=== PATIENT | male | born 1960 | race African-American/Black ===

== ENCOUNTER 2019-07-29 16:51 | Inpatient (IN) | payer MEDICAID ==
[~2019-07-29] VITALS: Ht 172.7 cm; Wt 85.7 kg
[2019-07-29] MEDS ORDERED: insulin (17:17)
[2019-07-29] MEDS ORDERED: VANCOMYCIN 1 G PREMIX 200 ML IV ONE (18:45)
[2019-07-29] MEDS ORDERED: PIPERACILLIN/TAZ 3.375G PREMIX 50 ML IV ONE (18:45)
[2019-07-29 19:02] LABS: BASOPHILS % 1.4 % (0.0-2.0); EOSINOPHILS % 2.1 % (0.0-5.0); HEMATOCRIT. 38.4 % (42.0-52.0); HEMOGLOBIN. 12.9 g/dL (14.0-18.0); LYMPHOCYTES % 32.3 % (20.0-50.0); MEAN CORPUSCULAR HEMOGLOBIN 28.1 pg (28.0-32.0); MEAN CORPUSCULAR VOLUME 83.7 fL (80.0-94.0); MEAN PLATELET VOLUME 8.5 fl (7.4-10.4); MONOCYTES % 5.2 % (2.0-8.0); PLATELET 235 x1000/uL (130-400); RED BLOOD CELL COUNT 4.59 mill/uL (4.7-6.1); RED CELL DISTRIBUTION WIDTH 14.2 % (11.6-14.6)
[2019-07-29 19:05] LABS: CHLORIDE 99 mEq/L (98-107)
[2019-07-29 19:09] LABS: PROTHROMBIN TIME 10.4 sec (9.6-11.0)
[2019-07-29] MEDS ORDERED: SODIUM CHLORIDE 0.9% 1,000 ML IV ONE (19:30)
[2019-07-29] MEDS ORDERED: INSULIN REGULAR (HUMULIN R) 300UNITS/3ML SUBCUT NR (19:30)
[2019-07-30] VITALS (7 sets, daily range): BP systolic 153–164; BP diastolic 87–99
[2019-07-30] MEDS ORDERED: ENAL20TA MT (01:51)
[2019-07-30] MEDS ORDERED: ACET167L14 PO (01:51)
[2019-07-30] MEDS ORDERED: ATOR20TA65 MT (01:51)
[2019-07-30] MEDS ORDERED: VERA180C3 MT (01:51)
[2019-07-30] MEDS ORDERED: ESCI20TA MT (01:51)
[2019-07-30] MEDS ORDERED: DEXTROSE 50% WATER 50ML SYRINGE IV PRN (02:15)
[2019-07-30] MEDS ORDERED: CLONIDINE 0.1MG TABLET PO PRN (02:15)
[2019-07-30] MEDS: PIPERACILLIN/TAZOBACTAM 3.375 G in DEXT 5% WATER 100 ML IV SCH ×3 (05:03→21:02)
[2019-07-30] MEDS: VANCOMYCIN 750 MG in DEXT 5% WATER 250 ML IV SCH ×2 (06:16→17:27)
[2019-07-30] MEDS: VERAPAMIL HCL 40MG TABLET PO SCH ×3 (06:17→21:01)
[2019-07-30] MEDS: BLOOD SUGAR DIAGNOSTIC STRIP TEST SCH ×4 (06:28→21:02)
[2019-07-30] MEDS: INSULIN LISPRO 100 UNITS/ML SUBCUT SCH ×4 (06:45→21:33)
[2019-07-30] MEDS: ENALAPRIL 5MG TABLET PO SCH ×2 (10:46→21:01)
[2019-07-30] MEDS: HYDRALAZINE HCL 25MG TABLET PO SCH ×2 (10:47→21:01)
[2019-07-30] MEDS: CITALOPRAM HYDROBROMIDE 10MG TABLET PO SCH (14:27)
[2019-07-30] MEDS ORDERED: ATORVASTATIN CALCIUM 20MG TABLET PO SCH (21:00)
[2019-07-30] MEDS: INSULIN GLARGINE UD 100 UNITS/ML SYR SUBCUT SCH (21:32)
[2019-07-31] VITALS: BP 159/98
[2019-07-31 04:00] VITALS: BP 144/88
[2019-07-31] MEDS: PIPERACILLIN/TAZOBACTAM 3.375 G in DEXT 5% WATER 100 ML IV SCH ×2 (04:45→13:36)
[2019-07-31] MEDS: VANCOMYCIN 750 MG in DEXT 5% WATER 250 ML IV SCH (06:27)
[2019-07-31] MEDS: VERAPAMIL HCL 40MG TABLET PO SCH ×2 (06:28→13:35)
[2019-07-31] MEDS: BLOOD SUGAR DIAGNOSTIC STRIP TEST SCH ×2 (07:00→11:49)
[2019-07-31] MEDS: INSULIN LISPRO 100 UNITS/ML SUBCUT SCH ×2 (07:00→13:43)
[2019-07-31 07:41] LABS: CHLORIDE 104 mEq/L (98-107)
[2019-07-31 07:50] LABS: VANCOMYCIN TROUGH 7.7 ug/mL (5.0-10.0)
[2019-07-31 08:00] VITALS: BP 155/87
[2019-07-31] MEDS: ENALAPRIL 5MG TABLET PO SCH (09:37)
[2019-07-31] MEDS: CITALOPRAM HYDROBROMIDE 10MG TABLET PO SCH (09:38)
[2019-07-31] MEDS: HYDRALAZINE HCL 25MG TABLET PO SCH (09:38)
[2019-07-31] MEDS: INSULIN GLARGINE UD 100 UNITS/ML SYR SUBCUT SCH (10:01)
[2019-07-31 12:00] VITALS: BP 146/89
[2019-07-31 13:48] VITALS: BP 146/89
[2019-07-31] MEDS ORDERED: VANCOMYCIN 1,000 MG in DEXT 5% WATER 250 ML IV SCH (18:00)
== END 2019-07-31 15:25 | disposition home or self-care (01) | DRG 364 ==
LOC: ER 16:51 → 6EST 21:18 → EDBEDREQ 21:21 → EDBEDREQTM 21:21 → ENRESERV 23:54
PROVIDERS: ADMIT Internal Medicine; ATTEND Internal Medicine
PROC: 0KBW0ZZ Excision of Left Foot Muscle, Open Approach (ICD-10-PCS; principal; 2019-07-29)
PROC: 0JBR0ZZ Excision of Left Foot Subcutaneous Tissue and Fascia, Open Approach (ICD-10-PCS; 2019-07-29)
PROC: 0JBQ0ZZ Excision of Right Foot Subcutaneous Tissue and Fascia, Open Approach (ICD-10-PCS; 2019-07-29)
DX: E11.621 Type 2 diabetes mellitus with foot ulcer (principal); L97.509 Non-pressure chronic ulcer of other part of unspecified foot with unspecified severity; E43 Unspecified severe protein-calorie malnutrition; E11.610 Type 2 diabetes mellitus with diabetic neuropathic arthropathy; E11.319 Type 2 diabetes mellitus with unspecified diabetic retinopathy without macular edema; E11.65 Type 2 diabetes mellitus with hyperglycemia; D64.9 Anemia, unspecified; E87.1 Hypo-osmolality and hyponatremia; I10 Essential (primary) hypertension; E11.622 Type 2 diabetes mellitus with other skin ulcer; E11.69 Type 2 diabetes mellitus with other specified complication; G62.9 Polyneuropathy, unspecified
CPT/HCPCS: 36415; 73630; 80048; 80053; 80202; 82962; 83036; 85025; 96365; 96366; 96368; 96372; 97116; 97162; 99285; J1815; J2543; J3370; J7060

== ENCOUNTER 2019-11-15 08:14 | Inpatient (IN) | payer MEDICAID ==
[~2019-11-15] VITALS: Ht 177.8 cm; Wt 93.0 kg
[~2019-11-15 08:14] MED LIST: ACET167L14 PO; ATOR20TA65 MT; ESCI20TA MT; VERA180C3 MT; insulin
[2019-11-15] MEDS ORDERED: KETOROLAC 30MG/ML VIAL IV STA (08:37)
[2019-11-15] MEDS ORDERED: SODIUM CHLORIDE 0.9% 1,000 ML IV ONE ×2 (08:37→09:45)
[2019-11-15 09:04] LABS: HEMATOCRIT. 37.8 % (42.0-52.0); HEMOGLOBIN. 12.9 g/dL (14.0-18.0); MEAN CORPUSCULAR HEMOGLOBIN 28.3 pg (28.0-32.0); MEAN CORPUSCULAR VOLUME 82.8 fL (80.0-94.0); MEAN PLATELET VOLUME 9.4 fl (7.4-10.4); PLATELET 234 x1000/uL (130-400); RED BLOOD CELL COUNT 4.56 mill/uL (4.7-6.1); RED CELL DISTRIBUTION WIDTH 15.3 % (11.6-14.6)
[2019-11-15 09:07] LABS: CHLORIDE 82 mEq/L (98-107)
[2019-11-15 09:20] LABS: CLARITY URINE CLEAR (CLEAR); COLOR URINE YELLOW (YELLOW); KETONES URINE TRACE (NEGATIVE); LEUKOCYTE ESTERASE URINE NEGATIVE (NEGATIVE); NITRITE URINE NEGATIVE (NEGATIVE); OCCULT BLOOD URINE 2+ (NEGATIVE); PROTEIN URINE 2+ (NEGATIVE); SPECIFIC GRAVITY URINE 1.023 (1.005-1.030); UROBILINOGEN URINE 0.2 E.U./dL (0.2-1.0)
[2019-11-15 09:39] LABS: PLATELET ESTIMATE NORMAL
[2019-11-15] MEDS ORDERED: INSULIN REGULAR (HUMULIN R) UD 100 UNITS/ML SYR SUBCUT ONE (09:45)
[2019-11-15] MEDS ORDERED: INSULIN REGULAR (HUMULIN R) 300UNITS/3ML SUBCUT SCH (10:00)
[2019-11-15] MEDS ORDERED: ONDANSETRON HCL 4MG/2ML INJ IV STA (10:18)
[2019-11-15] MEDS ORDERED: MORPHINE SULFATE 4 MG/ML CPJ (NOT FOR IM USE) IV STA (10:18)
[2019-11-15] MEDS ORDERED: ACETAMINOPHEN 325MG TABLET PO PRN (13:30)
[2019-11-15] MEDS ORDERED: DIPHENHYDRAMINE 50MG/ML VIAL IV PRN (13:30)
[2019-11-15] MEDS ORDERED: ONDANSETRON HCL 4MG/2ML INJ IV PRN (13:30)
[2019-11-15] MEDS ORDERED: DEXTROSE 50% WATER 50ML SYRINGE IV PRN (16:00)
[2019-11-15] MEDS ORDERED: PIPERACILLIN/TAZ 3.375G PREMIX 50 ML IV SCH (17:00)
[2019-11-15] MEDS: BLOOD SUGAR DIAGNOSTIC STRIP TEST SCH ×2 (17:35→21:00)
[2019-11-15] MEDS: ENOXAPARIN 40MG/0.4ML SYR SUBCUT SCH (17:58)
[2019-11-15] MEDS: INSULIN LISPRO 100 UNITS/ML SUBCUT SCH ×2 (17:58→23:23)
[2019-11-15] MEDS: MORPHINE SULFATE 4 MG/ML CPJ (NOT FOR IM USE) IV NR ×2 (18:21→19:41)
[2019-11-15 19:25] LABS: CHLORIDE 90 mEq/L (98-107)
[2019-11-15 19:31] LABS: PHOSPHORUS 3.1 mg/dL (2.5-4.9)
[2019-11-15 21:46] VITALS: BP 137/82
[2019-11-15 23:00] VITALS: BP 137/82
[2019-11-15] MEDS: MORPHINE SULFATE 4 MG/ML CPJ (NOT FOR IM USE) IV PRN (23:22)
[2019-11-15] MEDS: PIPERACILLIN/TAZOBACTAM 3.375 G in DEXT 5% WATER 100 ML IV SCH (23:22)
[2019-11-16] MEDS ORDERED: INSULIN SUBCUT (00:09)
[2019-11-16] MEDS: POTASSIUM CHLORIDE INJ 10 MEQ in SODIUM CHLORIDE 0.9% 1,000 ML IV SCH ×2 (01:51→15:33)
[2019-11-16 04:57] VITALS: BP 126/68
[2019-11-16] MEDS: PIPERACILLIN/TAZOBACTAM 3.375 G in DEXT 5% WATER 100 ML IV SCH ×3 (06:26→17:33)
[2019-11-16] MEDS: MORPHINE SULFATE 4 MG/ML CPJ (NOT FOR IM USE) IV PRN ×2 (06:29→17:44)
[2019-11-16] MEDS: INSULIN LISPRO 100 UNITS/ML SUBCUT SCH ×4 (06:31→21:24)
[2019-11-16] MEDS: BLOOD SUGAR DIAGNOSTIC STRIP TEST SCH ×4 (06:32→21:00)
[2019-11-16 07:40] LABS: SODIUM URINE RANDOM 12 mEq/L
[2019-11-16 08:00] VITALS: BP 120/74
[2019-11-16 10:29] LABS: HEMATOCRIT. 36.1 % (42.0-52.0); HEMOGLOBIN. 12.4 g/dL (14.0-18.0); MEAN CORPUSCULAR HEMOGLOBIN 28.6 pg (28.0-32.0); MEAN CORPUSCULAR VOLUME 83.6 fL (80.0-94.0); MEAN PLATELET VOLUME 9.2 fl (7.4-10.4); PLATELET 245 x1000/uL (130-400); RED BLOOD CELL COUNT 4.32 mill/uL (4.7-6.1); RED CELL DISTRIBUTION WIDTH 15.2 % (11.6-14.6)
[2019-11-16 10:34] LABS: CHLORIDE 91 mEq/L (98-107)
[2019-11-16 10:42] LABS: LDL CHOLESTEROL 82 mg/dL (5-100)
[2019-11-16 10:44] LABS: HDL CHOLESTEROL 10 mg/dL (40-59)
[2019-11-16 12:00] VITALS: BP 155/84
[2019-11-16] MEDS: ENOXAPARIN 40MG/0.4ML SYR SUBCUT SCH (13:23)
[2019-11-16 13:50] LABS: PLATELET ESTIMATE NORMAL
[2019-11-16] MEDS ORDERED: LACTULOSE 20G/30ML UDC PO NR (14:15)
[2019-11-16] MEDS: INSULIN GLARGINE UD 100 UNITS/ML SYR SUBCUT SCH (15:53)
[2019-11-16 16:00] VITALS: BP 129/76
[2019-11-16 20:00] VITALS: BP 126/72
[2019-11-16] MEDS: HYDROMORPHONE HCL/PF 2MG/ML CPJ IV PRN (21:37)
[2019-11-17] VITALS: BP 122/74
[2019-11-17] MEDS: PIPERACILLIN/TAZOBACTAM 3.375 G in DEXT 5% WATER 100 ML IV SCH ×4 (00:47→17:26)
[2019-11-17] MEDS: HYDROMORPHONE HCL/PF 2MG/ML CPJ IV PRN ×5 (03:26→21:27)
[2019-11-17 04:00] VITALS: BP 142/81
[2019-11-17] MEDS: POTASSIUM CHLORIDE INJ 10 MEQ in SODIUM CHLORIDE 0.9% 1,000 ML IV SCH (05:23)
[2019-11-17] MEDS: BLOOD SUGAR DIAGNOSTIC STRIP TEST SCH ×4 (06:00→20:33)
[2019-11-17 07:14] LABS: BASOPHILS % 0.8 % (0.0-2.0); EOSINOPHILS % 0.2 % (0.0-5.0); HEMATOCRIT. 35.3 % (42.0-52.0); HEMOGLOBIN. 12.2 g/dL (14.0-18.0); LYMPHOCYTES % 7.6 % (20.0-50.0); MEAN CORPUSCULAR HEMOGLOBIN 28.7 pg (28.0-32.0); MEAN CORPUSCULAR VOLUME 82.7 fL (80.0-94.0); MEAN PLATELET VOLUME 8.6 fl (7.4-10.4); MONOCYTES % 6.5 % (2.0-8.0); NEUTROPHILS % 84.9 % (40.0-76.0); PLATELET 299 x1000/uL (130-400); RED BLOOD CELL COUNT 4.27 mill/uL (4.7-6.1); RED CELL DISTRIBUTION WIDTH 15.3 % (11.6-14.6)
[2019-11-17 07:27] LABS: CHLORIDE 93 mEq/L (98-107)
[2019-11-17 07:39] LABS: PHOSPHORUS 2.6 mg/dL (2.5-4.9)
[2019-11-17 08:00] VITALS: BP 155/89
[2019-11-17] MEDS: INSULIN LISPRO 100 UNITS/ML SUBCUT SCH ×4 (08:39→20:31)
[2019-11-17] MEDS: INSULIN GLARGINE UD 100 UNITS/ML SYR SUBCUT SCH ×2 (10:28→20:30)
[2019-11-17 12:00] VITALS: BP 136/86
[2019-11-17] MEDS: ENOXAPARIN 40MG/0.4ML SYR SUBCUT SCH (13:04)
[2019-11-17] MEDS ORDERED: MAGNESIUM CITRATE 300ML SOLUTION PO NR (13:30)
[2019-11-17 16:00] VITALS: BP 125/84
[2019-11-17 20:00] VITALS: BP 151/88
[2019-11-17] MEDS: AMPICILLIN SOD/SULBACTAM NA 3 G in SODIUM CHLORIDE 0.9% 100 ML IV SCH (20:32)
[2019-11-17] MEDS: DEMECLOCYCLINE HCL 300MG TABLET PO SCH (21:35)
[2019-11-18] VITALS: BP 144/82
[2019-11-18] MEDS: AMPICILLIN SOD/SULBACTAM NA 3 G in SODIUM CHLORIDE 0.9% 100 ML IV SCH ×4 (01:33→20:03)
[2019-11-18] MEDS: HYDROMORPHONE HCL/PF 2MG/ML CPJ IV PRN ×6 (01:33→22:17)
[2019-11-18 04:00] VITALS: BP 146/89
[2019-11-18] MEDS: BLOOD SUGAR DIAGNOSTIC STRIP TEST SCH ×4 (06:04→20:03)
[2019-11-18 06:56] LABS: BASOPHILS % 0.8 % (0.0-2.0); EOSINOPHILS % 0.9 % (0.0-5.0); HEMOGLOBIN. 11.8 g/dL (14.0-18.0); LYMPHOCYTES % 10.9 % (20.0-50.0); MEAN CORPUSCULAR HEMOGLOBIN 28.7 pg (28.0-32.0); MEAN CORPUSCULAR VOLUME 82.7 fL (80.0-94.0); MEAN PLATELET VOLUME 7.8 fl (7.4-10.4); NEUTROPHILS % 78.4 % (40.0-76.0); PLATELET 366 x1000/uL (130-400); RED BLOOD CELL COUNT 4.12 mill/uL (4.7-6.1); RED CELL DISTRIBUTION WIDTH 15.3 % (11.6-14.6)
[2019-11-18 07:22] LABS: CHLORIDE 95 mEq/L (98-107)
[2019-11-18 07:31] LABS: PHOSPHORUS 2.9 mg/dL (2.5-4.9)
[2019-11-18] MEDS: INSULIN LISPRO 100 UNITS/ML SUBCUT SCH ×4 (08:08→22:23)
[2019-11-18] MEDS: DEMECLOCYCLINE HCL 300MG TABLET PO SCH ×2 (08:20→20:03)
[2019-11-18 08:34] VITALS: BP 158/88
[2019-11-18] MEDS: INSULIN GLARGINE UD 100 UNITS/ML SYR SUBCUT SCH ×2 (09:56→22:18)
[2019-11-18] MEDS ORDERED: POTASSIUM CHLORIDE 20MEQ TABLET SR PO NR (10:30)
[2019-11-18] MEDS ORDERED: AMLODIPINE 5MG TABLET PO SCH (10:30)
[2019-11-18] MEDS ORDERED: MAGNESIUM 2 G PREMIX 50 ML IV NR (11:00)
[2019-11-18 12:23] VITALS: BP 159/86
[2019-11-18] MEDS: ENOXAPARIN 40MG/0.4ML SYR SUBCUT SCH (13:52)
[2019-11-18 16:00] VITALS: BP 158/89
[2019-11-18 20:00] VITALS: BP 137/77
[2019-11-18] MEDS: POLYETHYLENE GLYCOL 3350 (17GM) 1 DOSE PACK PO SCH (20:03)
[2019-11-19] VITALS: BP 166/80
[2019-11-19] MEDS: CLONIDINE 0.1MG TABLET PO PRN (02:26)
[2019-11-19] MEDS: HYDROMORPHONE HCL/PF 2MG/ML CPJ IV PRN ×6 (02:27→23:04)
[2019-11-19] MEDS: AMPICILLIN SOD/SULBACTAM NA 3 G in SODIUM CHLORIDE 0.9% 100 ML IV SCH ×4 (02:27→21:07)
[2019-11-19 04:17] VITALS: BP 175/75
[2019-11-19] MEDS: BLOOD SUGAR DIAGNOSTIC STRIP TEST SCH ×4 (05:50→21:08)
[2019-11-19 06:33] LABS: CHLORIDE 97 mEq/L (98-107)
[2019-11-19 06:39] LABS: BASOPHILS % 1.1 % (0.0-2.0); EOSINOPHILS % 0.6 % (0.0-5.0); HEMATOCRIT. 32.6 % (42.0-52.0); HEMOGLOBIN. 11.3 g/dL (14.0-18.0); LYMPHOCYTES % 14.4 % (20.0-50.0); MEAN CORPUSCULAR HEMOGLOBIN 28.8 pg (28.0-32.0); MEAN CORPUSCULAR VOLUME 83.1 fL (80.0-94.0); MEAN PLATELET VOLUME 7.9 fl (7.4-10.4); MONOCYTES % 7.6 % (2.0-8.0); NEUTROPHILS % 76.3 % (40.0-76.0); PLATELET 355 x1000/uL (130-400); RED BLOOD CELL COUNT 3.92 mill/uL (4.7-6.1); RED CELL DISTRIBUTION WIDTH 15.2 % (11.6-14.6)
[2019-11-19 06:48] LABS: PHOSPHORUS 3.5 mg/dL (2.5-4.9)
[2019-11-19] MEDS: INSULIN LISPRO 100 UNITS/ML SUBCUT SCH ×4 (08:27→21:53)
[2019-11-19] MEDS: DEMECLOCYCLINE HCL 300MG TABLET PO SCH ×2 (08:30→21:07)
[2019-11-19 08:31] VITALS: BP 131/78
[2019-11-19] MEDS: AMLODIPINE 5MG TABLET PO SCH (08:31)
[2019-11-19] MEDS: LOSARTAN POTASSIUM 50 MG TABLET PO SCH (08:46)
[2019-11-19 11:36] VITALS: BP 125/79
[2019-11-19] MEDS: INSULIN GLARGINE UD 100 UNITS/ML SYR SUBCUT SCH ×2 (14:16→21:52)
[2019-11-19] MEDS: ENOXAPARIN 40MG/0.4ML SYR SUBCUT SCH (14:45)
[2019-11-19 16:27] VITALS: BP 133/75
[2019-11-19 20:29] VITALS: BP 151/76
[2019-11-19] MEDS: POLYETHYLENE GLYCOL 3350 (17GM) 1 DOSE PACK PO SCH (21:07)
[2019-11-20] VITALS (7 sets, daily range): BP systolic 122–155; BP diastolic 74–95
[2019-11-20] MEDS: HYDROMORPHONE HCL/PF 2MG/ML CPJ IV PRN ×5 (02:59→20:50)
[2019-11-20] MEDS: AMPICILLIN SOD/SULBACTAM NA 3 G in SODIUM CHLORIDE 0.9% 100 ML IV SCH ×4 (02:59→20:48)
[2019-11-20 05:35] LABS: CHLORIDE 98 mEq/L (98-107)
[2019-11-20 06:14] LABS: BASOPHILS % 0.8 % (0.0-2.0); EOSINOPHILS % 1.1 % (0.0-5.0); HEMATOCRIT. 32.4 % (42.0-52.0); HEMOGLOBIN. 11.3 g/dL (14.0-18.0); LYMPHOCYTES % 15.6 % (20.0-50.0); MEAN CORPUSCULAR VOLUME 82.9 fL (80.0-94.0); MEAN PLATELET VOLUME 7.6 fl (7.4-10.4); MONOCYTES % 7.6 % (2.0-8.0); NEUTROPHILS % 74.9 % (40.0-76.0); PLATELET 404 x1000/uL (130-400); RED BLOOD CELL COUNT 3.91 mill/uL (4.7-6.1); RED CELL DISTRIBUTION WIDTH 15.3 % (11.6-14.6)
[2019-11-20] MEDS: BLOOD SUGAR DIAGNOSTIC STRIP TEST SCH ×4 (07:20→20:51)
[2019-11-20] MEDS: DEMECLOCYCLINE HCL 300MG TABLET PO SCH ×2 (08:24→20:48)
[2019-11-20] MEDS: AMLODIPINE 5MG TABLET PO SCH (08:24)
[2019-11-20] MEDS: LOSARTAN POTASSIUM 50 MG TABLET PO SCH (08:25)
[2019-11-20] MEDS: INSULIN LISPRO 100 UNITS/ML SUBCUT SCH ×4 (08:39→20:50)
[2019-11-20] MEDS ORDERED: BISACODYL 5MG TABLET PO NR (08:45)
[2019-11-20] MEDS: INSULIN GLARGINE UD 100 UNITS/ML SYR SUBCUT SCH ×2 (10:55→21:53)
[2019-11-20] MEDS ORDERED: MAGNESIUM CITRATE 300ML SOLUTION PO NR ×2 (11:00→16:00)
[2019-11-20] MEDS: ENOXAPARIN 40MG/0.4ML SYR SUBCUT SCH (15:30)
[2019-11-20] MEDS ORDERED: LACTULOSE 20G/30ML UDC PO SCH (21:00)
[2019-11-21 00:32] VITALS: BP 153/83
[2019-11-21] MEDS: HYDROMORPHONE HCL/PF 2MG/ML CPJ IV PRN ×3 (00:51→09:16)
[2019-11-21] MEDS: AMPICILLIN SOD/SULBACTAM NA 3 G in SODIUM CHLORIDE 0.9% 100 ML IV SCH ×4 (02:16→15:21)
[2019-11-21 04:36] VITALS: BP 145/87
[2019-11-21 06:56] LABS: CHLORIDE 98 mEq/L (98-107)
[2019-11-21 07:19] LABS: BASOPHILS % 1.1 % (0.0-2.0); EOSINOPHILS % 0.7 % (0.0-5.0); HEMATOCRIT. 30.5 % (42.0-52.0); HEMOGLOBIN. 10.6 g/dL (14.0-18.0); LYMPHOCYTES % 16.8 % (20.0-50.0); MEAN CORPUSCULAR HEMOGLOBIN 28.9 pg (28.0-32.0); MEAN CORPUSCULAR VOLUME 82.9 fL (80.0-94.0); MEAN PLATELET VOLUME 7.5 fl (7.4-10.4); MONOCYTES % 6.7 % (2.0-8.0); NEUTROPHILS % 74.7 % (40.0-76.0); PLATELET 435 x1000/uL (130-400); RED BLOOD CELL COUNT 3.68 mill/uL (4.7-6.1); RED CELL DISTRIBUTION WIDTH 15.3 % (11.6-14.6)
[2019-11-21] MEDS: BLOOD SUGAR DIAGNOSTIC STRIP TEST SCH ×2 (07:32→12:20)
[2019-11-21] MEDS: INSULIN LISPRO 100 UNITS/ML SUBCUT SCH ×2 (07:50→13:58)
[2019-11-21 08:00] VITALS: BP 150/78
[2019-11-21] MEDS: LOSARTAN POTASSIUM 50 MG TABLET PO SCH (09:14)
[2019-11-21] MEDS: AMLODIPINE 5MG TABLET PO SCH (09:14)
[2019-11-21] MEDS: DEMECLOCYCLINE HCL 300MG TABLET PO SCH (09:16)
[2019-11-21] MEDS ORDERED: AMLO5TAB88 PO (10:28)
[2019-11-21] MEDS ORDERED: LOSA50TA3 PO (10:28)
[2019-11-21] MEDS ORDERED: LANTUSUD SUBCUT (10:30)
[2019-11-21] MEDS: INSULIN GLARGINE UD 100 UNITS/ML SYR SUBCUT SCH (10:33)
[2019-11-21] MEDS ORDERED: SODIUM BICARBONATE 4% (2.4MEQ) 5ML VIAL IV ONE (10:53)
[2019-11-21] MEDS ORDERED: LIDOCAINE HCL 1% 20ML VIAL (Pyxis) INJ ONE (10:53)
[2019-11-21] MEDS ORDERED: HYDR-4009 MT (13:35)
[2019-11-21] MEDS ORDERED: HYDR-4135 MT (13:35)
[2019-11-21] MEDS ORDERED: HYDROCODONE/ACETAMINOPHEN 10/325MG TABLET PO SCH (13:45)
[2019-11-21] MEDS: CLONIDINE 0.1MG TABLET PO PRN (13:52)
[2019-11-21] MEDS: ENOXAPARIN 40MG/0.4ML SYR SUBCUT SCH (13:53)
[2019-11-21 16:01] LABS: *AMPHETAMINES SCREEN URINE NEGATIVE (NEGATIVE); *BARBITURATES SCREEN URINE NEGATIVE (NEGATIVE); *BENZODIAZEPINES SCREEN URINE NEGATIVE (NEGATIVE); *COCAINE SCREEN URINE NEGATIVE (NEGATIVE); CANNABINOID URINE SCREEN NEGATIVE (NEGATIVE)
[2019-11-21 16:02] LABS: METHADONE URINE SCREEN NEGATIVE (NEGATIVE); OPIATES URINE SCREEN PRESUMTIVE POSITIVE (NEGATIVE); PHENCYCLIDINE URINE SCREEN NEGATIVE (NEGATIVE)
[2019-11-21 16:19] VITALS: BP 154/73
[2019-11-21] MEDS ORDERED: HYDRALAZINE HCL 25MG TABLET PO SCH (21:00)
== END 2019-11-21 17:50 | disposition home health service (06) | DRG 720 ==
LOC: ER 08:21 → 6WST 12:34 → EDBEDREQSVC 14:39 → ENRESERV 19:23 → 6WST 20:40
PROVIDERS: ADMIT Internal Medicine; ATTEND Internal Medicine
PROC: 0JBR0ZZ Excision of Left Foot Subcutaneous Tissue and Fascia, Open Approach (ICD-10-PCS; 2019-11-18)
PROC: 0JBQ0ZZ Excision of Right Foot Subcutaneous Tissue and Fascia, Open Approach (ICD-10-PCS; 2019-11-18)
PROC: 0HDMXZZ Extraction of Right Foot Skin, External Approach (ICD-10-PCS; 2019-11-18)
PROC: 02HV33Z Insertion of Infusion Device into Superior Vena Cava, Percutaneous Approach (ICD-10-PCS; principal; 2019-11-21)
PROC: B5181ZA Fluoroscopy of Superior Vena Cava using Low Osmolar Contrast, Guidance (ICD-10-PCS; 2019-11-21)
PROC: B548ZZA Ultrasonography of Superior Vena Cava, Guidance (ICD-10-PCS; 2019-11-21)
DX: A40.1 Sepsis due to streptococcus, group B (principal); M48.061 Spinal stenosis, lumbar region without neurogenic claudication; E87.1 Hypo-osmolality and hyponatremia; E11.21 Type 2 diabetes mellitus with diabetic nephropathy; E43 Unspecified severe protein-calorie malnutrition; M51.06 Intervertebral disc disorders with myelopathy, lumbar region; E11.65 Type 2 diabetes mellitus with hyperglycemia; E11.319 Type 2 diabetes mellitus with unspecified diabetic retinopathy without macular edema; E11.41 Type 2 diabetes mellitus with diabetic mononeuropathy; M48.02 Spinal stenosis, cervical region; M47.814 Spondylosis without myelopathy or radiculopathy, thoracic region; M51.26 Other intervertebral disc displacement, lumbar region; L97.529 Non-pressure chronic ulcer of other part of left foot with unspecified severity; M51.27 Other intervertebral disc displacement, lumbosacral region; M86.8X9 Other osteomyelitis, unspecified sites; E11.610 Type 2 diabetes mellitus with diabetic neuropathic arthropathy; E11.621 Type 2 diabetes mellitus with foot ulcer; E78.5 Hyperlipidemia, unspecified; E86.1 Hypovolemia; E87.6 Hypokalemia; F17.210 Nicotine dependence, cigarettes, uncomplicated; I10 Essential (primary) hypertension; K59.00 Constipation, unspecified; Z82.49 Family history of ischemic heart disease and other diseases of the circulatory system; Z79.899 Other long term (current) drug therapy; Z83.3 Family history of diabetes mellitus; Z79.4 Long term (current) use of insulin; Z89.412 Acquired absence of left great toe; Z91.14 Patient's other noncompliance with medication regimen; Z68.29 Body mass index [BMI] 29.0-29.9, adult; Z88.8 Allergy status to other drugs, medicaments and biological substances
CPT/HCPCS: 36415; 36573; 72131; 72141; 72146; 72148; 73030; 73630; 76937; 80048; 80053; 80061; 80305; 81003; 82533; 82962; 83036; 83735; 83935; 84100; 84145; 84300; 84443; 84550; 85025; 85651; 87077; 87186; 93970; A4565; C1725; J0295; J1170; J1650; J1815; J1885; J2270; J2405; J2543; J3475; J3480; J3490; J7030; J7050; J7060

== ENCOUNTER 2019-11-25 12:29 | Emergency (ER) | payer MEDICAID ==
[~2019-11-25] VITALS: Ht 177.8 cm; Wt 92.0 kg
[~2019-11-25 12:29] MED LIST changes: +AMLO5TAB88 PO; +HYDR-4009 MT; +HYDR-4135 MT; +INSULIN SUBCUT; +LANTUSUD SUBCUT; +LOSA50TA3 PO; -insulin
[2019-11-25 12:30] VITALS: BP 142/82
== END 2019-11-25 12:56 | disposition left against medical advice (07) ==
LOC: ER 12:29
DX: Z53.21 Procedure and treatment not carried out due to patient leaving prior to being seen by health care provider (principal)

== ENCOUNTER 2019-11-25 17:32 | Emergency (ER) | payer MEDICAID ==
[~2019-11-25] VITALS: Ht 177.8 cm; Wt 92.0 kg
[2019-11-25 18:25] VITALS: BP 178/84
== END 2019-11-25 18:26 | disposition home or self-care (01) ==
LOC: ER 17:32
DX: Z76.0 Encounter for issue of repeat prescription (principal); E11.9 Type 2 diabetes mellitus without complications; I10 Essential (primary) hypertension; Z89.412 Acquired absence of left great toe; Z79.4 Long term (current) use of insulin; Z88.8 Allergy status to other drugs, medicaments and biological substances
CPT/HCPCS: 99282

== ENCOUNTER 2019-11-30 11:15 | Emergency (ER) | payer MEDICAID ==
[~2019-11-30] VITALS: Ht 177.8 cm; Wt 91.8 kg
[2019-11-30 12:48] VITALS: BP 177/98
== END 2019-11-30 12:30 | disposition home or self-care (01) ==
LOC: ER 11:37
DX: M25.511 Pain in right shoulder (principal); M54.5 Low back pain; E11.9 Type 2 diabetes mellitus without complications; E78.00 Pure hypercholesterolemia, unspecified; I10 Essential (primary) hypertension; Z89.422 Acquired absence of other left toe(s); Z79.4 Long term (current) use of insulin; Z87.828 Personal history of other (healed) physical injury and trauma
CPT/HCPCS: 99283

== ENCOUNTER 2019-12-03 09:25 | Emergency (ER) | payer MEDICAID ==
[~2019-12-03] VITALS: Ht 177.8 cm; Wt 90.0 kg
[2019-12-03] MEDS ORDERED: KETOROLAC 60MG/2ML VIAL IM SCH (11:29)
[2019-12-03 12:05] VITALS: BP 162/88
== END 2019-12-03 12:09 | disposition home or self-care (01) ==
LOC: ER 09:25
DX: M54.5 Low back pain (principal); M48.00 Spinal stenosis, site unspecified; E11.9 Type 2 diabetes mellitus without complications; I10 Essential (primary) hypertension; E78.00 Pure hypercholesterolemia, unspecified; Z88.8 Allergy status to other drugs, medicaments and biological substances
CPT/HCPCS: 96372; 99283; J1885

== ENCOUNTER 2020-03-23 16:17 | Emergency (ER) | payer MEDICAID ==
[~2020-03-23] VITALS: Ht 177.8 cm; Wt 77.0 kg
[2020-03-23] MEDS ORDERED: HYDROCODONE/ACETAMINOPHEN 5/325MG TABLET PO ONE (21:45)
[2020-03-23 22:53] VITALS: BP 160/92
== END 2020-03-23 22:54 | disposition home or self-care (01) ==
LOC: ER 16:17
DX: E11.621 Type 2 diabetes mellitus with foot ulcer (principal); L97.519 Non-pressure chronic ulcer of other part of right foot with unspecified severity; L97.529 Non-pressure chronic ulcer of other part of left foot with unspecified severity; I10 Essential (primary) hypertension; Z79.4 Long term (current) use of insulin
CPT/HCPCS: 93005; 99283

== ENCOUNTER 2020-06-04 17:54 | Emergency (ER) | payer MEDICAID ==
[~2020-06-04] VITALS: Ht 177.8 cm; Wt 83.0 kg
[2020-06-04] MEDS ORDERED: MORPHINE SULFATE 4 MG/ML CPJ (NOT FOR IM USE) IV ONE (19:30)
[2020-06-04 20:49] VITALS: BP 110/68
[2020-06-05] MEDS ORDERED: LANTUSUD SUBCUT (19:00)
[2020-06-08] MEDS ORDERED: ATOR40TA70 MT (15:18)
[2020-06-08] MEDS ORDERED: LEVO750T46 MT (15:19)
== END 2020-06-04 21:24 | disposition left against medical advice (07) ==
LOC: ER 17:54
DX: E11.52 Type 2 diabetes mellitus with diabetic peripheral angiopathy with gangrene (principal); I96 Gangrene, not elsewhere classified; L03.116 Cellulitis of left lower limb; L03.115 Cellulitis of right lower limb; E78.00 Pure hypercholesterolemia, unspecified; I10 Essential (primary) hypertension; Z88.8 Allergy status to other drugs, medicaments and biological substances; Z79.4 Long term (current) use of insulin
CPT/HCPCS: 93005; 96374; 99283; J2270

== ENCOUNTER 2020-10-27 09:26 | Emergency (ER) | payer MEDICAID ==
[~2020-10-27] VITALS: Ht 177.8 cm; Wt 88.0 kg
[~2020-10-27 09:26] MED LIST changes: -ATOR20TA65 MT; +ATOR40TA70 MT; -INSULIN SUBCUT; +LEVO750T46 MT
[2020-10-27] MEDS ORDERED: HYDR-4001 MT (12:50)
[2020-10-27] MEDS ORDERED: AMOX1TAB16 MT (12:52)
[2020-10-27] MEDS ORDERED: IBUPROFEN 600MG TABLET PO ONE (13:00)
[2020-10-27] MEDS ORDERED: ACETAMINOPHEN 325MG TABLET PO ONE (13:00)
[2020-10-27 13:21] VITALS: BP 122/80
== END 2020-10-27 13:23 | disposition left against medical advice (07) ==
LOC: ER 09:36
DX: H57.12 Ocular pain, left eye (principal); I10 Essential (primary) hypertension; E78.00 Pure hypercholesterolemia, unspecified; E11.9 Type 2 diabetes mellitus without complications; Z88.2 Allergy status to sulfonamides; Z79.4 Long term (current) use of insulin; Z79.899 Other long term (current) drug therapy
CPT/HCPCS: 70486; 99285

== ENCOUNTER 2021-11-01 06:54 | Inpatient (IN) | payer MEDICAID, OTHER ==
[~2021-11-01] VITALS: Ht 177.8 cm; Wt 86.6 kg
[~2021-11-01 06:54] MED LIST changes: +AMOX1TAB16 MT; +HYDR-4001 MT
[2021-11-01 10:10] LABS: CHLORIDE 104 mEq/L (98-107)
[2021-11-01 10:11] LABS: BASOPHILS % 1.4 % (0.0-2.0); EOSINOPHILS % 1.4 % (0.0-5.0); HEMATOCRIT. 31.7 % (42.0-52.0); HEMOGLOBIN. 10.3 g/dL (14.0-18.0); LYMPHOCYTES % 23.3 % (20.0-50.0); MEAN CORPUSCULAR HEMOGLOBIN 26.5 pg (28.0-32.0); MEAN CORPUSCULAR VOLUME 81.8 fL (80.0-94.0); MEAN PLATELET VOLUME 7.3 fl (7.4-10.4); NEUTROPHILS % 67.9 % (40.0-76.0); PLATELET 376 x1000/uL (130-400); RED BLOOD CELL COUNT 3.88 mill/uL (4.7-6.1); RED CELL DISTRIBUTION WIDTH 14.7 % (11.6-14.6)
[2021-11-01] MEDS ORDERED: ENALAPRIL 2.5MG/2ML VIAL 2ML IV ONE (10:15)
[2021-11-01] MEDS ORDERED: FUROSEMIDE 40MG/4ML VIAL IVP ONE (10:15)
[2021-11-01] MEDS ORDERED: ENALAPRIL 1.25MG/ML VIAL 1ML IV NR (10:15)
[2021-11-01] MEDS: CLONIDINE 0.1MG TABLET PO PRN (13:56)
[2021-11-01] MEDS ORDERED: ONDANSETRON HCL 4MG/2ML INJ IV PRN (15:45)
[2021-11-01] MEDS ORDERED: ACETAMINOPHEN 325MG TABLET PO PRN (15:45)
[2021-11-01] MEDS ORDERED: DEXTROSE 50% WATER 50ML SYRINGE IV PRN (15:45)
[2021-11-01 16:00] VITALS: BP 136/88
[2021-11-01 16:48] VITALS: BP 138/88
[2021-11-01] MEDS ORDERED: FLUT1DIS3 INH (17:11)
[2021-11-01] MEDS ORDERED: ALBU18HF2 IH (17:11)
[2021-11-01] MEDS ORDERED: FURO-151 MT (17:11)
[2021-11-01] MEDS ORDERED: IPRATROPIUM/ALBUTEROL 0.5-3(2.5)MG/3ML NEB HHN PRN (17:15)
[2021-11-01] MEDS: FUROSEMIDE 40MG/4ML VIAL IVP SCH (17:41)
[2021-11-01] MEDS: AMLODIPINE 10MG TABLET PO SCH (17:43)
[2021-11-01] MEDS: BLOOD SUGAR DIAGNOSTIC STRIP TEST SCH ×2 (17:43→20:29)
[2021-11-01] MEDS: INSULIN LISPRO 100 UNITS/ML SUBCUT SCH ×2 (18:10→20:29)
[2021-11-01 20:00] VITALS: BP 158/80
[2021-11-02] VITALS: BP 164/80
[2021-11-02 04:00] VITALS: BP 181/90
[2021-11-02] MEDS: CLONIDINE 0.1MG TABLET PO PRN ×2 (05:23→13:59)
[2021-11-02] MEDS: INSULIN LISPRO 100 UNITS/ML SUBCUT SCH ×2 (05:35→11:46)
[2021-11-02] MEDS: BLOOD SUGAR DIAGNOSTIC STRIP TEST SCH ×2 (05:35→12:34)
[2021-11-02] MEDS: FUROSEMIDE 40MG/4ML VIAL IVP SCH (06:11)
[2021-11-02 08:00] VITALS: BP 149/75
[2021-11-02] MEDS ORDERED: HYDRALAZINE HCL 50MG TABLET PO NR (08:00)
[2021-11-02] MEDS: AMLODIPINE 10MG TABLET PO SCH (08:40)
[2021-11-02] MEDS ORDERED: LOSARTAN POTASSIUM 100 MG TABLET PO SCH (09:00)
[2021-11-02 12:00] VITALS: BP 167/89
[2021-11-02 13:36] VITALS: BP 167/89
[2021-11-02] MEDS ORDERED: HYDR100T26 MT (14:23)
[2021-11-02] MEDS ORDERED: INSU100I28 SQ (14:25)
[2021-11-02] MEDS ORDERED: INSULIN GLARGINE 100 UNITS/ML SUBCUT NR (14:30)
[2021-11-02] MEDS ORDERED: HYDRALAZINE HCL 50MG TABLET PO SCH (17:00)
== END 2021-11-02 16:00 | disposition home or self-care (01) | DRG 199 ==
LOC: ER 06:54 → 8WST 11:44 → EDBEDREQTM 11:46 → ENRESERV 13:15
PROVIDERS: ADMIT Internal Medicine; ATTEND Internal Medicine
DX: I16.0 Hypertensive urgency (principal); E43 Unspecified severe protein-calorie malnutrition; J44.1 Chronic obstructive pulmonary disease with (acute) exacerbation; S91.302A Unspecified open wound, left foot, initial encounter; I50.9 Heart failure, unspecified; E11.65 Type 2 diabetes mellitus with hyperglycemia; D64.9 Anemia, unspecified; E78.00 Pure hypercholesterolemia, unspecified; E78.5 Hyperlipidemia, unspecified; I11.0 Hypertensive heart disease with heart failure; Z20.822 Contact with and (suspected) exposure to COVID-19; F17.210 Nicotine dependence, cigarettes, uncomplicated; X58.XXXA Exposure to other specified factors, initial encounter; Z88.8 Allergy status to other drugs, medicaments and biological substances; Z79.899 Other long term (current) drug therapy; Z79.891 Long term (current) use of opiate analgesic; Z79.1 Long term (current) use of non-steroidal anti-inflammatories (NSAID); Y93.89 Activity, other specified; Y92.89 Other specified places as the place of occurrence of the external cause; Y99.8 Other external cause status
CPT/HCPCS: 36415; 71045; 80053; 82962; 83880; 84484; 85025; 87426; 93005; 93306; 93880; 93971; 99285; C9803; J1815; J1940; J3490

== ENCOUNTER 2021-11-07 18:34 | Emergency (ER) | payer OTHER ==
[~2021-11-07] VITALS: Ht 177.8 cm; Wt 87.0 kg
[~2021-11-07 18:34] MED LIST changes: +ALBU18HF2 IH; -AMOX1TAB16 MT; +FLUT1DIS3 INH; +FURO-151 MT; +HYDR100T26 MT; +INSU100I28 SQ; -LEVO750T46 MT
[2021-11-07] MEDS ORDERED: HYDROCODONE/ACETAMINOPHEN 5/325MG TABLET PO STA (20:27)
[2021-11-07] MEDS ORDERED: IBUP-2028 MT (22:31)
[2021-11-07 22:34] VITALS: BP 108/75
== END 2021-11-07 22:35 | disposition home or self-care (01) ==
LOC: ER 18:34
DX: R51.9 Headache, unspecified (principal); T16.1XXA Foreign body in right ear, initial encounter; X58.XXXA Exposure to other specified factors, initial encounter; Y93.89 Activity, other specified; Y92.89 Other specified places as the place of occurrence of the external cause; Y99.8 Other external cause status; E11.9 Type 2 diabetes mellitus without complications; E78.00 Pure hypercholesterolemia, unspecified; I10 Essential (primary) hypertension; Z98.890 Other specified postprocedural states; F17.290 Nicotine dependence, other tobacco product, uncomplicated; F12.10 Cannabis abuse, uncomplicated; Z79.899 Other long term (current) drug therapy
CPT/HCPCS: 69200; 99284

== ENCOUNTER 2021-12-06 19:18 | Inpatient (IN) | payer MEDICAID, OTHER ==
[~2021-12-06] VITALS: Ht 177.8 cm; Wt 83.9 kg
[~2021-12-06 19:18] MED LIST changes: +IBUP-2028 MT
[2021-12-06] MEDS ORDERED: KETOROLAC 30MG/ML VIAL IV STA (21:21)
[2021-12-06] MEDS ORDERED: IBUPROFEN 600MG TABLET PO STA (21:21)
[2021-12-06] MEDS ORDERED: SODIUM CHLORIDE 0.9% 1,000 ML IV ONE (21:30)
[2021-12-06] MEDS ORDERED: CEFEPIME 1,000 MG in DEXTROSE 5% WATER 50 ML IV SCH (21:30)
[2021-12-06 22:03] LABS: BASOPHILS % 2.9 % (0.0-2.0); EOSINOPHILS % 1.7 % (0.0-5.0); HEMATOCRIT. 35.9 % (42.0-52.0); HEMOGLOBIN. 11.8 g/dL (14.0-18.0); LYMPHOCYTES % 26.8 % (20.0-50.0); MEAN CORPUSCULAR HEMOGLOBIN 26.2 pg (28.0-32.0); MEAN CORPUSCULAR VOLUME 80.1 fL (80.0-94.0); MEAN PLATELET VOLUME 7.7 fl (7.4-10.4); MONOCYTES % 4.7 % (2.0-8.0); NEUTROPHILS % 63.9 % (40.0-76.0); PLATELET 304 x1000/uL (130-400); RED BLOOD CELL COUNT 4.48 mill/uL (4.7-6.1); RED CELL DISTRIBUTION WIDTH 15.5 % (11.6-14.6)
[2021-12-06 22:04] LABS: CHLORIDE 95 mEq/L (98-107)
[2021-12-06 23:57] LABS: CLARITY URINE CLEAR (CLEAR); COLOR URINE YELLOW (YELLOW); KETONES URINE NEGATIVE (NEGATIVE); LEUKOCYTE ESTERASE URINE NEGATIVE (NEGATIVE); NITRITE URINE NEGATIVE (NEGATIVE); OCCULT BLOOD URINE TRACE (NEGATIVE); PH URINE 5.5 (4.5-8.0); PROTEIN URINE 2+ (NEGATIVE); UROBILINOGEN URINE 0.2 E.U./dL (0.2-1.0)
[2021-12-07] MEDS ORDERED: ONDANSETRON HCL 4MG/2ML INJ IV PRN (10:15)
[2021-12-07] MEDS ORDERED: DEXTROSE 50% WATER 50ML SYRINGE IV PRN ×2 (10:15)
[2021-12-07] MEDS ORDERED: CLONIDINE 0.1MG TABLET PO PRN (10:15)
[2021-12-07] MEDS ORDERED: DOCUSATE SODIUM 100MG CAPSULE PO PRN (10:15)
[2021-12-07] MEDS ORDERED: ACETAMINOPHEN 325MG TABLET PO PRN (10:15)
[2021-12-07] MEDS ORDERED: MAGNESIUM/ALUMINUM HYDROXIDE/SIMETHICONE 30ML UDC PO PRN (10:15)
[2021-12-07] MEDS: SODIUM CHLORIDE 0.9% 1,000 ML IV SCH ×2 (10:30→23:50)
[2021-12-07] MEDS ORDERED: NALOXONE HCL 0.4MG/ML VIAL IV PRN (10:30)
[2021-12-07] MEDS: ENOXAPARIN 40MG/0.4ML SYR SUBCUT SCH (11:22)
[2021-12-07] MEDS: HYDRALAZINE HCL 50MG TABLET PO SCH ×2 (11:23→17:16)
[2021-12-07] MEDS: AMLODIPINE 10MG TABLET PO SCH (11:24)
[2021-12-07] MEDS: OMEPRAZOLE 20MG CAPSULE EXTENDED RELEASE PO SCH (11:24)
[2021-12-07] MEDS: INSULIN GLARGINE 100 UNITS/ML SUBCUT SCH ×2 (11:44→21:55)
[2021-12-07 12:00] VITALS: BP 184/92
[2021-12-07] MEDS: HYDROCODONE/ACETAMINOPHEN 5/325MG TABLET PO PRN ×2 (12:03→22:09)
[2021-12-07] MEDS: BLOOD SUGAR DIAGNOSTIC STRIP TEST SCH ×3 (12:20→20:51)
[2021-12-07] MEDS: INSULIN LISPRO 100 UNITS/ML SUBCUT SCH ×6 (12:50→21:00)
[2021-12-07 16:00] VITALS: BP 153/77
[2021-12-07 16:40] LABS: CREATINE KINASE 124 IU/L (39-308)
[2021-12-07 20:00] VITALS: BP 157/76
[2021-12-07] MEDS: CEFEPIME 2,000 MG in DEXT 5% WATER 100 ML IV SCH (21:47)
[2021-12-07] MEDS: ATORVASTATIN CALCIUM 40MG TABLET PO SCH (22:04)
[2021-12-08] VITALS: BP 122/83
[2021-12-08 04:00] VITALS: BP 144/80
[2021-12-08] MEDS: OMEPRAZOLE 20MG CAPSULE EXTENDED RELEASE PO SCH (06:36)
[2021-12-08] MEDS: BLOOD SUGAR DIAGNOSTIC STRIP TEST SCH ×4 (06:48→21:27)
[2021-12-08] MEDS: INSULIN LISPRO 100 UNITS/ML SUBCUT SCH ×4 (07:50→21:00)
[2021-12-08 08:00] VITALS: BP 159/91
[2021-12-08] MEDS: HYDRALAZINE HCL 50MG TABLET PO SCH ×2 (08:41→17:36)
[2021-12-08] MEDS: AMLODIPINE 10MG TABLET PO SCH (08:41)
[2021-12-08 08:42] LABS: BASOPHILS % 1.9 % (0.0-2.0); EOSINOPHILS % 3.6 % (0.0-5.0); HEMOGLOBIN. 10.3 g/dL (14.0-18.0); LYMPHOCYTES % 34.6 % (20.0-50.0); MEAN CORPUSCULAR HEMOGLOBIN 26.1 pg (28.0-32.0); MEAN CORPUSCULAR VOLUME 78.9 fL (80.0-94.0); MONOCYTES % 8.5 % (2.0-8.0); NEUTROPHILS % 51.4 % (40.0-76.0); PLATELET 233 x1000/uL (130-400); RED BLOOD CELL COUNT 3.93 mill/uL (4.7-6.1); RED CELL DISTRIBUTION WIDTH 15.6 % (11.6-14.6)
[2021-12-08 08:59] LABS: CHLORIDE 102 mEq/L (98-107)
[2021-12-08] MEDS: HYDROCODONE/ACETAMINOPHEN 5/325MG TABLET PO PRN ×3 (09:05→21:58)
[2021-12-08 09:08] LABS: PHOSPHORUS 3.7 mg/dL (2.5-4.9)
[2021-12-08] MEDS: ENOXAPARIN 40MG/0.4ML SYR SUBCUT SCH (10:50)
[2021-12-08] MEDS: INSULIN GLARGINE 100 UNITS/ML SUBCUT SCH (10:54)
[2021-12-08 12:00] VITALS: BP 146/80
[2021-12-08] MEDS: SODIUM CHLORIDE 0.9% 1,000 ML IV SCH ×2 (13:10→17:55)
[2021-12-08] MEDS: CEFEPIME 2,000 MG in DEXT 5% WATER 100 ML IV SCH ×3 (14:00→23:00)
[2021-12-08 16:00] VITALS: BP 147/82
[2021-12-08] MEDS ORDERED: DEXT 5%/0.45% NACL 1000ML 1,000 ML IV SCH (17:30)
[2021-12-08 20:00] VITALS: BP 161/93
[2021-12-08] MEDS: ATORVASTATIN CALCIUM 40MG TABLET PO SCH (21:38)
[2021-12-09] VITALS: BP 154/89
[2021-12-09 04:00] VITALS: BP 173/95
[2021-12-09] MEDS: OMEPRAZOLE 20MG CAPSULE EXTENDED RELEASE PO SCH (06:29)
[2021-12-09] MEDS: BLOOD SUGAR DIAGNOSTIC STRIP TEST SCH ×2 (07:53→12:44)
[2021-12-09 08:00] VITALS: BP 132/92
[2021-12-09 08:41] LABS: BASOPHILS % 1.6 % (0.0-2.0); EOSINOPHILS % 2.8 % (0.0-5.0); HEMATOCRIT. 30.5 % (42.0-52.0); HEMOGLOBIN. 10.2 g/dL (14.0-18.0); LYMPHOCYTES % 32.2 % (20.0-50.0); MEAN CORPUSCULAR HEMOGLOBIN 26.5 pg (28.0-32.0); MEAN CORPUSCULAR VOLUME 79.4 fL (80.0-94.0); MEAN PLATELET VOLUME 8.1 fl (7.4-10.4); NEUTROPHILS % 55.4 % (40.0-76.0); PLATELET 228 x1000/uL (130-400); RED BLOOD CELL COUNT 3.84 mill/uL (4.7-6.1); RED CELL DISTRIBUTION WIDTH 15.4 % (11.6-14.6)
[2021-12-09] MEDS: CEFEPIME 2,000 MG in DEXT 5% WATER 100 ML IV SCH (08:44)
[2021-12-09] MEDS: HYDRALAZINE HCL 50MG TABLET PO SCH (08:45)
[2021-12-09] MEDS: AMLODIPINE 10MG TABLET PO SCH (08:45)
[2021-12-09] MEDS: HYDROCODONE/ACETAMINOPHEN 5/325MG TABLET PO PRN (08:46)
[2021-12-09] MEDS: INSULIN LISPRO 100 UNITS/ML SUBCUT SCH ×2 (09:03→12:44)
[2021-12-09 09:21] LABS: CHLORIDE 100 mEq/L (98-107)
[2021-12-09] MEDS ORDERED: LIDOCAINE HCL 1% 10 MG/ML 10ML VIAL ONE (10:12)
[2021-12-09 12:00] VITALS: BP 128/86
[2021-12-09] MEDS: ENOXAPARIN 40MG/0.4ML SYR SUBCUT SCH (12:00)
[2021-12-09 14:13] VITALS: BP 128/86
== END 2021-12-09 15:21 | disposition home health service (06) | DRG 344 ==
LOC: ER 19:18 → MICUSO 22:42 → 6EST 12-07 10:10
PROVIDERS: ADMIT Internal Medicine; ATTEND Internal Medicine
PROC: 02HV33Z Insertion of Infusion Device into Superior Vena Cava, Percutaneous Approach (ICD-10-PCS; principal; 2021-12-09)
PROC: B5181ZA Fluoroscopy of Superior Vena Cava using Low Osmolar Contrast, Guidance (ICD-10-PCS; 2021-12-09)
PROC: B548ZZA Ultrasonography of Superior Vena Cava, Guidance (ICD-10-PCS; 2021-12-09)
DX: M86.8X7 Other osteomyelitis, ankle and foot (principal); N17.0 Acute kidney failure with tubular necrosis; E44.1 Mild protein-calorie malnutrition; E11.621 Type 2 diabetes mellitus with foot ulcer; E11.40 Type 2 diabetes mellitus with diabetic neuropathy, unspecified; L97.529 Non-pressure chronic ulcer of other part of left foot with unspecified severity; I10 Essential (primary) hypertension; Z20.822 Contact with and (suspected) exposure to COVID-19; J44.9 Chronic obstructive pulmonary disease, unspecified; F12.90 Cannabis use, unspecified, uncomplicated; Z88.8 Allergy status to other drugs, medicaments and biological substances; Z79.899 Other long term (current) drug therapy; Z89.422 Acquired absence of other left toe(s); Z68.26 Body mass index [BMI] 26.0-26.9, adult
CPT/HCPCS: 36415; 36573; 71045; 76770; 80048; 80053; 80076; 81003; 82010; 82550; 82962; 83036; 83605; 83735; 83880; 84100; 84145; 85025; 85651; 87426; 93005; 93970; 99285; C1725; C1769; J0692; J1650; J1815; J1885; J3490; J7030; J7060

== ENCOUNTER 2022-11-13 22:09 | Emergency (ER) | payer MEDICAID, OTHER ==
[~2022-11-13] VITALS: Ht 177.8 cm; Wt 88.0 kg
[~2022-11-13 22:09] MED LIST changes: -HYDR100T26 MT; +LOSA-413 PO; -LOSA50TA3 PO; +P50 MT
[2022-11-13 22:36] VITALS: BP 189/79; PULSE 65; RESP 17; TEMP 101.6; O2SAT 97
== END 2022-11-14 04:49 | disposition left against medical advice (07) ==
LOC: ER 22:09
DX: M79.605 Pain in left leg (principal); E11.9 Type 2 diabetes mellitus without complications; I88.9 Nonspecific lymphadenitis, unspecified; J44.9 Chronic obstructive pulmonary disease, unspecified; I10 Essential (primary) hypertension
CPT/HCPCS: 93971; 99284

== ENCOUNTER 2023-09-07 10:15 | Emergency (ER) | payer MEDICAID, OTHER ==
[~2023-09-07] VITALS: Ht 177.8 cm; Wt 86.0 kg
[~2023-09-07 10:15] MED LIST changes: -HYDR-4001 MT; -HYDR-4135 MT; +HYDR50TA40 MT
[2023-09-07 10:21] VITALS: BP 123/70; PULSE 75; RESP 15; TEMP 98.6; O2SAT 99
[2023-09-07] MEDS ORDERED: OFLO5DRO4 LEFT EAR (11:36)
== END 2023-09-07 12:11 | disposition home or self-care (01) ==
LOC: ER 10:15
DX: T16.2XXA Foreign body in left ear, initial encounter (principal); X58.XXXA Exposure to other specified factors, initial encounter; Y93.89 Activity, other specified; Y92.89 Other specified places as the place of occurrence of the external cause; Y99.8 Other external cause status
CPT/HCPCS: 99281; Z7610 ×3

== ENCOUNTER 2024-02-01 19:27 | Inpatient (IN) | payer MEDICAID, OTHER ==
[~2024-02-01] VITALS: Ht 182.9 cm; Wt 87.3 kg
[~2024-02-01 19:27] MED LIST changes: +OFLO5DRO4 LEFT EAR
[2024-02-01 20:34] LABS: BASOPHILS % 2.7 % (0.0-2.0); EOSINOPHILS % 2.6 % (0.0-5.0); HEMOGLOBIN. 11.8 g/dL (14.0-18.0); LYMPHOCYTES % 34.2 % (20.0-50.0); MEAN CORPUSCULAR HEMOGLOBIN 27.8 pg (28.0-32.0); MEAN CORPUSCULAR HGB CONC 32.9 g/dL (31.0-37.0); MEAN CORPUSCULAR VOLUME 84.5 fL (80.0-94.0); MEAN PLATELET VOLUME 7.7 fl (7.4-10.4); MONOCYTES % 6.2 % (2.0-8.0); NEUTROPHILS % 54.3 % (40.0-76.0); PLATELET 339 x1000/uL (130-400); RED BLOOD CELL COUNT 4.26 mill/uL (4.7-6.1); RED CELL DISTRIBUTION WIDTH 14.8 % (11.6-14.6); WHITE BLOOD COUNT 4.2 x1000/uL (4.5-11.0)
[2024-02-01 20:46] LABS: CHLORIDE 102 mEq/L (98-107); POTASSIUM 4.1 mEq/L (3.5-5.1); SODIUM 135 mEq/L (136-145)
[2024-02-01 20:47] LABS: CALCIUM 9.3 mg/dL (8.7-10.4); CARBON DIOXIDE 28 mEq/L (21-32)
[2024-02-01 20:52] LABS: CREATININE 1.7 mg/dL (0.6-1.3); GLUCOSE 311 mg/dL (70-105); UREA NITROGEN BLOOD 17 mg/dL (9-23)
[2024-02-01 20:58] LABS: TROPONIN I HIGH SENSITIVITY 1392 ng/L (3.0-53)
[2024-02-01] MEDS: ASPIRIN 81MG TABLET PO ONE (22:11)
[2024-02-01 22:39] LABS: PROTHROMBIN TIME 11.1 sec (9.6-11.0)
[2024-02-01] MEDS ORDERED: HEPARIN BOLUS PRN aPTT 30-44 IV (23:45)
[2024-02-01] MEDS ORDERED: HEPARIN BOLUS PRN aPTT <30 IV (23:45)
[2024-02-01] MEDS ORDERED: HEPARIN 25,000 UNITS PREMIX 250 ML IV PRN (23:45)
[2024-02-01] MEDS ORDERED: HEPARIN 5000 UNITS/ML VIAL IV PRN ×2 (23:45)
[2024-02-01] MEDS ORDERED: HEPARIN 5000 UNITS/ML VIAL IV SCH (23:45)
[2024-02-02 00:53] LABS: PARTIAL THROMBOPLASTIN TIME 30.6 sec (23.4-31.0)
[2024-02-02] MEDS: HEPARIN 25,000 UNITS PREMIX 250 ML IV SCH (01:14)
[2024-02-02] MEDS: HEPARIN 60 UNITS/KG BOLUS IV SCH (01:16)
[2024-02-02 01:25] LABS: TROPONIN I HIGH SENSITIVITY 1400 ng/L (3.0-53)
[2024-02-02] MEDS ORDERED: DOCUSATE SODIUM 100MG CAPSULE PO PRN (04:00)
[2024-02-02] MEDS ORDERED: GUAIFENESIN 200MG/10ML SUGAR FREE UDC PO PRN (04:00)
[2024-02-02] MEDS ORDERED: ONDANSETRON HCL 4MG/2ML INJ IV PRN (04:00)
[2024-02-02] MEDS ORDERED: MAGNESIUM/ALUMINUM HYDROXIDE/SIMETHICONE 30ML UDC PO PRN (04:00)
[2024-02-02] MEDS ORDERED: CLONIDINE 0.1MG TABLET PO PRN (04:00)
[2024-02-02] MEDS ORDERED: DEXTROSE 50% WATER 50ML SYRINGE IV PRN (04:00)
[2024-02-02] MEDS ORDERED: ACETAMINOPHEN 325MG TABLET PO PRN ×2 (04:00)
[2024-02-02] MEDS ORDERED: IPRATROPIUM/ALBUTEROL 0.5-3(2.5)MG/3ML NEB HHN PRN (04:00)
[2024-02-02] MEDS: SODIUM CHLORIDE 0.9% 1,000 ML IV SCH (04:30)
[2024-02-02] MEDS ORDERED: NITROGLYCERIN 0.4MG TABLET SL SL PRN (04:45)
[2024-02-02 05:06] LABS: BASOPHILS % 1.6 % (0.0-2.0); EOSINOPHILS % 2.7 % (0.0-5.0); HEMATOCRIT. 34.9 % (42.0-52.0); HEMOGLOBIN. 11.6 g/dL (14.0-18.0); LYMPHOCYTES % 45.6 % (20.0-50.0); MEAN CORPUSCULAR HEMOGLOBIN 27.6 pg (28.0-32.0); MEAN CORPUSCULAR HGB CONC 33.1 g/dL (31.0-37.0); MEAN CORPUSCULAR VOLUME 83.3 fL (80.0-94.0); MEAN PLATELET VOLUME 7.5 fl (7.4-10.4); MONOCYTES % 5.1 % (2.0-8.0); PLATELET 287 x1000/uL (130-400); RED BLOOD CELL COUNT 4.19 mill/uL (4.7-6.1); RED CELL DISTRIBUTION WIDTH 14.9 % (11.6-14.6); WHITE BLOOD COUNT 4.9 x1000/uL (4.5-11.0)
[2024-02-02 05:23] LABS: POTASSIUM 3.9 mEq/L (3.5-5.1)
[2024-02-02 05:29] LABS: CREATINE KINASE MB FRACTION 2.2 ng/mL (0.5-3.6); CREATININE 1.7 mg/dL (0.6-1.3)
[2024-02-02 05:34] LABS: T4 FREE 1.06 ng/dL (0.89-1.76); THYROID STIMULATING HORMONE 0.64 uIU/mL (0.55-4.78)
[2024-02-02] MEDS: AMLODIPINE 5MG TABLET PO SCH (06:17)
[2024-02-02 07:22] LABS: CLARITY URINE CLEAR (CLEAR); COLOR URINE YELLOW (YELLOW); GLUCOSE URINE 2+ (NEGATIVE); KETONES URINE NEGATIVE (NEGATIVE); LEUKOCYTE ESTERASE URINE NEGATIVE (NEGATIVE); NITRITE URINE NEGATIVE (NEGATIVE); OCCULT BLOOD URINE NEGATIVE (NEGATIVE); PH URINE 6.5 (4.5-8.0); PROTEIN URINE 3+ (NEGATIVE); SPECIFIC GRAVITY URINE 1.016 (1.005-1.030); UROBILINOGEN URINE 0.2 E.U./dL (0.2-1.0)
[2024-02-02 07:47] LABS: BACTERIA URINE NONE SEEN; RBC URINE 0-2 /hpf (0-2); SQUAMOUS EPITHELIAL CELL URINE NONE SEEN /lpf (RARE/1+); WBC URINE 0-2 /hpf (0-2)
[2024-02-02] MEDS: INSULIN LISPRO 100 UNITS/ML SUBCUT SCH ×2 (07:50→10:56)
[2024-02-02] MEDS: ASPIRIN 81MG EC TABLET PO SCH (09:00)
[2024-02-02] MEDS: PANTOPRAZOLE SODIUM 40 MG/VIAL IV SCH (09:00)
[2024-02-02] MEDS: INSULIN GLARGINE 100 UNITS/ML SUBCUT SCH (10:00)
[2024-02-02 10:07] LABS: TROPONIN I HIGH SENSITIVITY 1268 ng/L (3.0-53)
[2024-02-02] MEDS: BLOOD SUGAR DIAGNOSTIC STRIP TEST SCH (10:32)
[2024-02-02 13:27] LABS: TROPONIN I HIGH SENSITIVITY 1184 ng/L (3.0-53)
[2024-02-02] MEDS ORDERED: BENA-8 PO (14:22)
[2024-02-02] MEDS ORDERED: AMLO10TA80 PO (14:22)
[2024-02-02] MEDS ORDERED: CHLO25TA2 PO (14:22)
[2024-02-02] MEDS ORDERED: HYDR100T31 PO (14:22)
[2024-02-02 17:50] VITALS: PULSE 74; RESP 18; O2SAT 97
[2024-02-02] MEDS: IPRATROPIUM/ALBUTEROL 0.5-3(2.5)MG/3ML NEB HHN SCH (17:50)
[2024-02-02] MEDS: BUDESONIDE 0.5MG/2ML NEB HHN SCH (18:19)
[2024-02-02 18:43] LABS: CREATINE KINASE 148 IU/L (46-171)
[2024-02-02 18:46] LABS: TROPONIN I HIGH SENSITIVITY 1149 ng/L (3.0-53)
[2024-02-02 21:55] LABS: TROPONIN I HIGH SENSITIVITY 997 ng/L (3.0-53)
[2024-02-02 22:04] VITALS: BP 163/86; PULSE 61; RESP 20; TEMP 36.44736; O2SAT 100
[2024-02-02 22:45] VITALS: BP 163/86; PULSE 61; RESP 20; TEMP 36.4736
[2024-02-02] MEDS: ATORVASTATIN CALCIUM 40MG TABLET PO SCH (23:08)
[2024-02-02] MEDS: GUAIFENESIN 600MG ER TABLET PO SCH (23:08)
[2024-02-03] VITALS: PULSE 67
[2024-02-03] MEDS ORDERED: IPRATROPIUM/ALBUTEROL 0.5-3(2.5)MG/3ML NEB HHN SCH
[2024-02-03 01:16] LABS: TROPONIN I HIGH SENSITIVITY 1071 ng/L (3.0-53)
[2024-02-03 03:36] LABS: BASOPHILS % 2.1 % (0.0-2.0); EOSINOPHILS % 2.7 % (0.0-5.0); HEMATOCRIT. 34.5 % (42.0-52.0); HEMOGLOBIN. 11.5 g/dL (14.0-18.0); LYMPHOCYTES % 43.5 % (20.0-50.0); MEAN CORPUSCULAR HEMOGLOBIN 27.8 pg (28.0-32.0); MEAN CORPUSCULAR HGB CONC 33.3 g/dL (31.0-37.0); MEAN CORPUSCULAR VOLUME 83.6 fL (80.0-94.0); MEAN PLATELET VOLUME 7.6 fl (7.4-10.4); MONOCYTES % 6.3 % (2.0-8.0); NEUTROPHILS % 45.4 % (40.0-76.0); PLATELET 304 x1000/uL (130-400); RED BLOOD CELL COUNT 4.12 mill/uL (4.7-6.1); RED CELL DISTRIBUTION WIDTH 14.5 % (11.6-14.6); WHITE BLOOD COUNT 4.5 x1000/uL (4.5-11.0)
[2024-02-03 03:38] LABS: POTASSIUM 4.3 mEq/L (3.5-5.1)
[2024-02-03 03:39] LABS: CALCIUM 8.9 mg/dL (8.7-10.4)
[2024-02-03 03:44] LABS: CREATININE 1.6 mg/dL (0.6-1.3)
[2024-02-03 04:00] VITALS: BP 159/66; PULSE 62; RESP 20; TEMP 36.16956; O2SAT 100
[2024-02-03 08:00] VITALS: BP 168/94; PULSE 69; RESP 18; TEMP 36.78072; O2SAT 98
[2024-02-03] MEDS: AMLODIPINE 10MG TABLET PO SCH (09:09)
[2024-02-03] MEDS: CLOPIDOGREL 75MG TABLET PO SCH (09:21)
[2024-02-03] MEDS ORDERED: ENOXAPARIN 100MG/ML SYR SUBCUT SCH (11:00)
[2024-02-04] MEDS ORDERED: ASPIRIN 81MG TABLET PO SCH (09:00)
[2024-02-04] MEDS ORDERED: FAMOTIDINE 20MG/2ML VIAL IV SCH (09:00)
== END 2024-02-03 12:46 | disposition left against medical advice (07) | DRG 190 ==
LOC: ER 19:27 → 7EST 02-02 01:09 → EDBEDREQTM 02-02 01:12 → EDBEDREQDT 02-02 01:12 → EDBEDREQ 02-02 01:12
PROVIDERS: ADMIT Internal Medicine; ATTEND Internal Medicine
DX: I21.4 Non-ST elevation (NSTEMI) myocardial infarction (principal); E11.22 Type 2 diabetes mellitus with diabetic chronic kidney disease; J44.1 Chronic obstructive pulmonary disease with (acute) exacerbation; I95.2 Hypotension due to drugs; E78.49 Other hyperlipidemia; Z20.822 Contact with and (suspected) exposure to COVID-19; Z53.29 Procedure and treatment not carried out because of patient's decision for other reasons; I12.9 Hypertensive chronic kidney disease with stage 1 through stage 4 chronic kidney disease, or unspecified chronic kidney disease; N18.9 Chronic kidney disease, unspecified; F17.210 Nicotine dependence, cigarettes, uncomplicated; Z79.4 Long term (current) use of insulin; Z89.512 Acquired absence of left leg below knee; Z89.612 Acquired absence of left leg above knee; Z91.148 Patient's other noncompliance with medication regimen for other reason; Z88.8 Allergy status to other drugs, medicaments and biological substances
CPT/HCPCS: 36415; 71045; 76770; 80048; 80061; 81003; 82550; 82553; 82962; 83036; 83605; 83880; 84145; 84439; 84443; 84481; 84484; 85025; 85379; 87426; 93005; 93306; 93970; 94640; 99285; J1644; J1815; J2470

== ENCOUNTER 2025-02-10 14:56 | Emergency (ER) | payer MEDICAID ==
[~2025-02-10] VITALS: Ht 180.3 cm; Wt 82.0 kg
[~2025-02-10 14:56] MED LIST changes: +AMLO10TA80 PO; +BENA-8 PO; +CHLO25TA2 PO; +HYDR100T31 PO; -VERA180C3 MT; +[UNRECOGNIZED DRUG - CODE] MT
[2025-02-10 15:09] VITALS: O2SAT 99
[2025-02-10 15:24] VITALS: BP 142/81; PULSE 78; RESP 18; TEMP 37; O2SAT 99
== END 2025-02-10 20:29 | disposition home or self-care (01) ==
LOC: ER 14:56
DX: M79.605 Pain in left leg (principal); E11.9 Type 2 diabetes mellitus without complications; I10 Essential (primary) hypertension; Z89.512 Acquired absence of left leg below knee; Z79.4 Long term (current) use of insulin; Z79.899 Other long term (current) drug therapy; Z79.51 Long term (current) use of inhaled steroids
CPT/HCPCS: 99282

== ENCOUNTER 2025-02-14 20:39 | Inpatient (IN) | payer MEDICAID ==
[~2025-02-14] VITALS: Ht 175.3 cm; Wt 83.5 kg
[2025-02-14 21:01] VITALS: O2SAT 96
[2025-02-14 21:46] LABS: BASOPHILS % 1.4 % (0.0-2.0); EOSINOPHILS % 2.6 % (0.0-5.0); HEMATOCRIT. 32.6 % (42.0-52.0); HEMOGLOBIN. 10.8 g/dL (14.0-18.0); LYMPHOCYTES % 23.3 % (20.0-50.0); MEAN PLATELET VOLUME 7.5 fl (7.4-10.4); MONOCYTES % 7.6 % (2.0-8.0); NEUTROPHILS % 65.1 % (40.0-76.0); PLATELET 402 x1000/uL (130-400); RED BLOOD CELL COUNT 3.93 mill/uL (4.7-6.1); RED CELL DISTRIBUTION WIDTH 14.4 % (11.6-14.6)
[2025-02-14 22:00] LABS: CREATININE 2.0 mg/dL (0.6-1.3); UREA NITROGEN BLOOD 29.0 mg/dL (9-23)
[2025-02-14] MEDS: CEFTRIAXONE 1GM/50ML 50 ML IV ONE (22:15)
[2025-02-14] MEDS: SODIUM CHLORIDE 0.9% 500 ML IV ONE (22:16)
[2025-02-14] MEDS ORDERED: MORPHINE SULFATE 2 MG/ML INJ (NOT FOR IM USE) IV ONE (22:30)
[2025-02-14] MEDS: MORPHINE SULFATE 4 MG/ML INJ (FOR IV/IM USE) IV SCH (22:52)
[2025-02-15] VITALS (7 sets, daily range): BP systolic 141–161; BP diastolic 77–91; PULSE 70–78; RESP 18–19; TEMP 36.4–36.8; O2SAT 95–98
[2025-02-15] MEDS ORDERED: MORPHINE SULFATE 2 MG/ML INJ (NOT FOR IM USE) IV PRN (01:45)
[2025-02-15] MEDS ORDERED: DEXTROSE 50% WATER 50ML SYRINGE IV PRN (01:45)
[2025-02-15] MEDS ORDERED: CLONIDINE 0.1MG TABLET PO PRN (01:45)
[2025-02-15] MEDS: SODIUM CHLORIDE 0.9% 1,000 ML IV SCH (02:20)
[2025-02-15] MEDS: BLOOD SUGAR DIAGNOSTIC STRIP TEST SCH (06:20)
[2025-02-15] MEDS ORDERED: NALOXONE HCL 0.4MG/ML VIAL IV PRN (07:00)
[2025-02-15] MEDS: INSULIN LISPRO 100 UNITS/ML SUBCUT SCH (09:01)
[2025-02-15] MEDS: HYDROCODONE/ACETAMINOPHEN 5/325MG TABLET PO PRN (09:12)
[2025-02-15] MEDS: INSULIN GLARGINE 100 UNITS/ML SUBCUT SCH (11:02)
[2025-02-15] MEDS: ENOXAPARIN 40MG/0.4ML SYR SUBCUT SCH (13:16)
[2025-02-15] MEDS: AMLODIPINE 10MG TABLET PO SCH (15:22)
[2025-02-15] MEDS: CITALOPRAM HYDROBROMIDE 10MG TABLET PO SCH (15:23)
[2025-02-15] MEDS: CHLORTHALIDONE 25MG TABLET PO SCH (15:23)
[2025-02-15] MEDS: MEROPENEM 1G/100ML 100 ML IV SCH (18:27)
[2025-02-15 19:04] LABS: CREATININE 1.7 mg/dL (0.6-1.3); UREA NITROGEN BLOOD 28.0 mg/dL (9-23)
[2025-02-15 19:14] LABS: C REACTIVE PROTEIN HIGH SENS 38.7 mg/l (<1.00)
[2025-02-15 19:25] LABS: CLARITY URINE CLEAR (CLEAR); COLOR URINE YELLOW (YELLOW); GLUCOSE URINE NEGATIVE (NEGATIVE); KETONES URINE NEGATIVE (NEGATIVE); LEUKOCYTE ESTERASE URINE NEGATIVE (NEGATIVE); NITRITE URINE NEGATIVE (NEGATIVE); OCCULT BLOOD URINE 2+ (NEGATIVE); PH URINE 5.5 (4.5-8.0); PROTEIN URINE 3+ (NEGATIVE); SPECIFIC GRAVITY URINE 1.015 (1.005-1.030); UROBILINOGEN URINE 0.2 E.U./dL (0.2-1.0)
[2025-02-15 19:58] LABS: BACTERIA URINE TRACE; SQUAMOUS EPITHELIAL CELL URINE RARE /lpf (RARE/1+); WBC URINE 0-2 /hpf (0-2)
[2025-02-15] MEDS ORDERED: CEFTRIAXONE 1GM/50ML 50 ML IV SCH (21:00)
[2025-02-15] MEDS: HYDRALAZINE HCL 50MG TABLET PO SCH (21:13)
[2025-02-15] MEDS: ATORVASTATIN CALCIUM 40MG TABLET PO SCH (21:14)
[2025-02-15] MEDS: LOSARTAN 50 MG TABLET PO SCH (21:15)
[2025-02-16] VITALS: BP 144/90; PULSE 73; RESP 18; TEMP 36.5; O2SAT 96
[2025-02-16 04:00] VITALS: BP 147/87; PULSE 66; RESP 19; TEMP 36.6; O2SAT 97
[2025-02-16 08:00] VITALS: BP 160/96; PULSE 71; RESP 17; TEMP 35.6; O2SAT 97
[2025-02-16 09:27] LABS: BASOPHILS % 1.0 % (0.0-2.0); EOSINOPHILS % 4.6 % (0.0-5.0); HEMATOCRIT. 32.0 % (42.0-52.0); HEMOGLOBIN. 10.4 g/dL (14.0-18.0); LYMPHOCYTES % 26.5 % (20.0-50.0); MEAN PLATELET VOLUME 7.4 fl (7.4-10.4); MONOCYTES % 8.3 % (2.0-8.0); NEUTROPHILS % 59.6 % (40.0-76.0); PLATELET 438 x1000/uL (130-400); RED BLOOD CELL COUNT 3.83 mill/uL (4.7-6.1); RED CELL DISTRIBUTION WIDTH 14.6 % (11.6-14.6)
[2025-02-16 09:34] LABS: CREATININE 1.8 mg/dL (0.6-1.3); UREA NITROGEN BLOOD 26 mg/dL (9-23)
[2025-02-16 09:36] LABS: ASPARTATE AMINOTRANSFERASE 13 IU/L (<34); BILIRUBIN TOTAL 0.2 mg/dL (0.1-1.0); PROTEIN TOTAL 6.1 g/dL (6.0-8.3)
[2025-02-16 12:00] VITALS: BP 143/80; PULSE 68; RESP 17; TEMP 36.5; O2SAT 97
[2025-02-16] MEDS: HYDRALAZINE HCL 100MG TABLET PO SCH (13:56)
[2025-02-16 16:00] VITALS: BP 121/66; PULSE 75; RESP 18; TEMP 36.6; O2SAT 95
[2025-02-16 20:00] VITALS: BP 129/70; PULSE 78; RESP 20; TEMP 36.5; O2SAT 95
[2025-02-17] VITALS: BP 125/74; PULSE 74; RESP 20; TEMP 36.2; O2SAT 96
[2025-02-17 04:00] VITALS: BP 157/79; PULSE 74; RESP 20; TEMP 36.9; O2SAT 97
[2025-02-17 08:00] VITALS: BP 149/90; PULSE 70; RESP 19; TEMP 36.2; O2SAT 97
[2025-02-17 11:26] LABS: BASOPHILS % 1.2 % (0.0-2.0); EOSINOPHILS % 2.9 % (0.0-5.0); HEMATOCRIT. 34.3 % (42.0-52.0); HEMOGLOBIN. 11.4 g/dL (14.0-18.0); LYMPHOCYTES % 22.1 % (20.0-50.0); MEAN PLATELET VOLUME 7.8 fl (7.4-10.4); MONOCYTES % 6.2 % (2.0-8.0); NEUTROPHILS % 67.6 % (40.0-76.0); PLATELET 478 x1000/uL (130-400); RED BLOOD CELL COUNT 4.15 mill/uL (4.7-6.1); RED CELL DISTRIBUTION WIDTH 14.5 % (11.6-14.6)
[2025-02-17 11:41] LABS: CREATININE 1.8 mg/dL (0.6-1.3); UREA NITROGEN BLOOD 20.0 mg/dL (9-23)
[2025-02-17 12:00] VITALS: BP 138/76; PULSE 69; RESP 20; TEMP 36.5; O2SAT 97
[2025-02-17] MEDS: SODIUM HYPOCHLORITE 0.125% 473ML SOLUTION TOP SCH (14:53)
[2025-02-17 16:00] VITALS: BP 130/75; PULSE 69; RESP 19; TEMP 36.2; O2SAT 96
[2025-02-17 20:00] VITALS: BP 113/62; PULSE 78; RESP 20; TEMP 36.7; O2SAT 97
[2025-02-18] VITALS: BP 149/68; PULSE 74; RESP 20; TEMP 36.7; O2SAT 96
[2025-02-18 08:00] VITALS: BP 157/97; PULSE 67; RESP 19; TEMP 36.2; O2SAT 97
[2025-02-18 09:08] LABS: BASOPHILS % 1.1 % (0.0-2.0); EOSINOPHILS % 2.5 % (0.0-5.0); HEMATOCRIT. 33.1 % (42.0-52.0); HEMOGLOBIN. 10.8 g/dL (14.0-18.0); LYMPHOCYTES % 24.4 % (20.0-50.0); MEAN PLATELET VOLUME 7.8 fl (7.4-10.4); MONOCYTES % 6.1 % (2.0-8.0); NEUTROPHILS % 65.9 % (40.0-76.0); PLATELET 505 x1000/uL (130-400); RED BLOOD CELL COUNT 3.99 mill/uL (4.7-6.1); RED CELL DISTRIBUTION WIDTH 14.3 % (11.6-14.6)
[2025-02-18 09:33] LABS: CREATININE 1.9 mg/dL (0.6-1.3); UREA NITROGEN BLOOD 20.0 mg/dL (9-23)
[2025-02-18 12:00] VITALS: BP 138/80; PULSE 71; RESP 19; TEMP 36.2; O2SAT 98
[2025-02-18 16:00] VITALS: BP 119/68; PULSE 83; RESP 19; TEMP 36.2; O2SAT 97
[2025-02-18 20:00] VITALS: BP 124/55; PULSE 73; RESP 18; TEMP 36.4; O2SAT 97
[2025-02-19] VITALS: BP 146/77; PULSE 70; RESP 18; TEMP 36.4; O2SAT 98
[2025-02-19 08:00] VITALS: BP 157/73; PULSE 72; RESP 18; TEMP 36.7; O2SAT 100
[2025-02-19 12:00] VITALS: BP 146/76; PULSE 76; RESP 18; TEMP 36.7; O2SAT 97
[2025-02-19 16:00] VITALS: BP 124/72; PULSE 74; RESP 18; TEMP 36.3; O2SAT 98
[2025-02-19 20:00] VITALS: BP 132/66; PULSE 72; RESP 18; TEMP 36.6; O2SAT 98
[2025-02-20] VITALS: BP 130/68; PULSE 79; RESP 18; TEMP 36.6; O2SAT 96
[2025-02-20] MEDS: VANCOMYCIN 1.75GM PMX (XELLIA) 350 ML IV SCH (01:10)
[2025-02-20 04:00] VITALS: BP 136/62; PULSE 78; RESP 18; TEMP 36.2; O2SAT 98
[2025-02-20 05:45] LABS: CREATININE 1.8 mg/dL (0.6-1.3); UREA NITROGEN BLOOD 22.0 mg/dL (9-23)
[2025-02-20 06:18] LABS: BASOPHILS % 1.2 % (0.0-2.0); EOSINOPHILS % 1.8 % (0.0-5.0); HEMATOCRIT. 30.8 % (42.0-52.0); HEMOGLOBIN. 10.1 g/dL (14.0-18.0); LYMPHOCYTES % 25.1 % (20.0-50.0); MEAN PLATELET VOLUME 7.7 fl (7.4-10.4); MONOCYTES % 6.2 % (2.0-8.0); NEUTROPHILS % 65.7 % (40.0-76.0); PLATELET 429 x1000/uL (130-400); RED BLOOD CELL COUNT 3.73 mill/uL (4.7-6.1); RED CELL DISTRIBUTION WIDTH 14.5 % (11.6-14.6)
[2025-02-20 08:00] VITALS: BP 152/76; PULSE 71; RESP 19; TEMP 36.6; O2SAT 97
[2025-02-20 12:00] VITALS: BP 126/66; PULSE 70; RESP 17; TEMP 36.7; O2SAT 100
[2025-02-20 18:07] VITALS: BP 126/66; PULSE 70; RESP 17; TEMP 98
[2025-02-21] MEDS ORDERED: VANCOMYCIN 1GM PMX (XELLIA) 200 ML IV SCH
== END 2025-02-20 19:30 | disposition home health service (06) | DRG 349 ==
LOC: ER 20:39 → 6EST 22:35 → EDBEDREQ 22:38 → EDBEDREQTM 22:38 → ENRESERV 23:07
PROVIDERS: ADMIT Internal Medicine; ATTEND Internal Medicine
PROC: 02HV33Z Insertion of Infusion Device into Superior Vena Cava, Percutaneous Approach (ICD-10-PCS; principal; 2025-02-19)
PROC: B548ZZA Ultrasonography of Superior Vena Cava, Guidance (ICD-10-PCS; 2025-02-19)
DX: T87.89 Other complications of amputation stump (principal); A41.9 Sepsis, unspecified organism; L89.899 Pressure ulcer of other site, unspecified stage; M86.8X6 Other osteomyelitis, lower leg; N17.9 Acute kidney failure, unspecified; L03.116 Cellulitis of left lower limb; E11.22 Type 2 diabetes mellitus with diabetic chronic kidney disease; D64.9 Anemia, unspecified; E11.69 Type 2 diabetes mellitus with other specified complication; Y83.5 Amputation of limb(s) as the cause of abnormal reaction of the patient, or of later complication, without mention of misadventure at the time of the procedure; I12.9 Hypertensive chronic kidney disease with stage 1 through stage 4 chronic kidney disease, or unspecified chronic kidney disease; R26.9 Unspecified abnormalities of gait and mobility; N18.31 Chronic kidney disease, stage 3a; Z79.4 Long term (current) use of insulin; Z89.512 Acquired absence of left leg below knee; Z97.14 Presence of artificial left leg (complete) (partial); Z79.899 Other long term (current) drug therapy; Y92.89 Other specified places as the place of occurrence of the external cause
CPT/HCPCS: 36415; 36573; 71045; 73590; 76770; 80048; 80053; 81003; 82962; 83036; 84145; 85025; 85651; 86141; 87070; 87077; 87186; 93923; 96365; 97162; 99285; A4606; A6449; C1725; C1769; J0696; J1650; J1815; J2185; J2270; J3373; J7030